=== PATIENT | female | born 1950 | race Caucasian/White ===

== ENCOUNTER 2024-04-08 08:57 | Outpatient (RCR) | payer MEDICARE, BC, SELFPAY ==
[2024-04-08 09:25] VITALS: BP 163/83
[2024-04-08] MEDS: RECLAST 100 IV (09:41)
== END 2024-04-09 08:45 | disposition home or self-care (01) ==
LOC: OID 08:57
PROVIDERS: ATTENDING PHYSICIAN Internal Medicine Endocrinology, Diabetes & Metabolism; FAMILY PHYSICIAN Family Medicine
DX: M81.8 Other osteoporosis without current pathological fracture (principal)
CPT/HCPCS: 96365; J3489